=== PATIENT | male | born 1960 | race Caucasian/White ===

== ENCOUNTER 2017-04-29 15:19 | Observation (INO) | payer OTHER ==
[2017-04-29 15:43] LABS: BASOPHILS % (AUTO) 1 % (0-3); EOSINOPHILS % (AUTO) 2 % (0-9); HEMATOCRIT 45 % (39-53); MEAN CORPUSCULAR VOLUME 85 fL (80-100); MONOCYTES % (AUTO) 4.9 % (0-12); NEUTROPHILS % (AUTO) 60.5 % (37-80)
[2017-04-29 15:49] LABS: CALCIUM 9.4 mg/dl (8.5-10.1); POTASSIUM 5.2 mMol/L (3.5-5.1)
[2017-04-29] MEDS ORDERED: TDAP VACCINE 0.5 ML SUS IM ONE ×2 (16:26→16:28)
[2017-04-29] MEDS ORDERED: HYDROMORPHONE HCL 2 MG/ML SOL ONE (16:35)
[2017-04-29] MEDS ORDERED: HYDROMORPHONE HCL 2 MG/ML SOL IV ONE (16:41)
[2017-04-29] MEDS: SODIUM CHLORIDE 0.9% FLUSH 10 ML SOL IV PRN ×3 (16:46→23:55)
[2017-04-29] MEDS ORDERED: APAP/HYDROCODONE 325/5 TAB PO PRN (17:48)
[2017-04-29] MEDS: NAPROXEN 500 MG TAB PO PRN (20:23)
[2017-04-29] MEDS ORDERED: METOPROLOL TARTRATE 25 MG TAB PO SCH (21:00)
[2017-04-29] MEDS ORDERED: ROSUVASTATIN CALCIUM 10 MG TAB PO SCH (21:00)
[2017-04-29] MEDS ORDERED: MORPHINE SULFATE 10 MG/ML SOL ONE (23:49)
[2017-04-29] MEDS: MORPHINE SULFATE 10 MG/ML SOL IV PRN (23:54)
[2017-04-30] MEDS ORDERED: MORPHINE SULFATE 10 MG/ML SOL ONE (04:03)
[2017-04-30] MEDS: MORPHINE SULFATE 10 MG/ML SOL IV PRN (04:05)
[2017-04-30] MEDS: SODIUM CHLORIDE 0.9% FLUSH 10 ML SOL IV PRN (04:06)
[2017-04-30] MEDS ORDERED: OXYBUTYNIN CHLORIDE 5 MG TAB PO PRN (08:01)
[2017-04-30 08:06] VITALS: RESP 20
[2017-04-30] MEDS ORDERED: OXYCODONE HYDROCHLORIDE 5 MG TAB PO PRN (08:11)
[2017-04-30] MEDS ORDERED: ROSUVASTATIN 40MG TAB PO SCH (09:00)
[2017-04-30] MEDS ORDERED: LISINOPRIL 5 MG TAB PO SCH (09:00)
[2017-04-30] MEDS ORDERED: BUPROPION HCL 200 MG T12 PO SCH (09:00)
[2017-04-30] MEDS: NAPROXEN 500 MG TAB PO PRN (10:34)
[2017-04-30] MEDS ORDERED: SODIUM CHLORIDE 0.9% FLUSH 10 ML SOL IV SCH (12:00)
[2017-04-30 13:02] VITALS: BP 120/79; PULSE 78; TEMP 96.7; O2SAT 92
== END 2017-04-30 13:15 | disposition home or self-care (01) | DRG 184 ==
LOC: ED 15:19 → ACUTE CARE 17:10 → UNDOADMOB 17:10 → ACUTE CARE 18:00
PROVIDERS: ADMIT Family Medicine; ATTEND Family Medicine
DX: S22.5XXA Flail chest, initial encounter for closed fracture (principal); S27.0XXA Traumatic pneumothorax, initial encounter; S27.321A Contusion of lung, unilateral, initial encounter; S42.101A Fracture of unspecified part of scapula, right shoulder, initial encounter for closed fracture; W11.XXXA Fall on and from ladder, initial encounter; Y99.0 Civilian activity done for income or pay
CPT/HCPCS: 36415; 71010; 71020; 71250; 73070; 80048; 85025; 90715; 93005; 94150; 99285; J1170; J2270